=== PATIENT | female | born 1980 | race Caucasian/White ===

== ENCOUNTER 2018-12-22 12:20 | Emergency (ER) | payer BC ==
--- NOTE | 2018-12-22 13:27 | UC ---
Shoulder Pain HPI - HPI Summary HPI Summary: Right shoulder painful for about 6 months. Limited ROM and unable to sleep at night due to the pain. Hearing a lot of popping and cracking. denies any injury , ROM is limited - History of Current Complaint Chief Complaint: UCUpperExtremity Stated Complaint: RT SHOULDER COMPLAINT Time Seen by Provider: 12/22/18 13:24 Hx Obtained From: Patient Hx Last Menstrual Period: December 15 ?: No Onset/Duration: Gradual Onset, Lasting Weeks Timing: Constant Severity Initially: Severe Severity Currently: Severe Pain Intensity: 8 Aggravating Factor(s): Movement Alleviating Factor(s): Nothing - Allergies/Home Medications Allergies/Adverse Reactions: Allergies Allergy/AdvReac Type Severity Reaction Status Date / Time MS Penicillins [Penicillins] Allergy Hives Verified 08/03/13 14:39 Home Medications: Home Medications Aspirin 81 mg CHEW TAB* [Aspirin Low Dose TAB*] 81 mg PO DAILY 12/22/18 [ History Confirmed 12/22/18] Atorvastatin* [Lipitor*] 40 mg PO 2100 12/22/18 [History Confirmed 12/22/18] Citalopram TAB* [CeleXA TAB*] 40 mg PO DAILY 12/22/18 [History Confirmed ] Insulin LISPRO* [HumaLOG*] 0 units SUBCUT DIRECTED 12/22/18 [History Confirmed 12/22/18] Topiramate TAB(*) [Topamax 25 MG tab] 25 mg PO BID 12/22/18 [History Confirmed 12/22/18] buPROPion TAB* [Wellbutrin TAB*] 150 mg PO DAILY 12/22/18 [History Confirmed 10/07] hydrOXYzine HCL TAB* [Atarax TAB 50 MG *] 50 mg PO BID 12/22/18 [History Confirmed 12/22/18] PMH/Surg Hx/FS Hx/Imm Hx Previously Healthy: Yes - Surgical History Surgical History: Yes Surgery Procedure, Year, and Place: APR 2012. FULL MOUTH EXTRACTION - Family History Known Family History: Positive: Hypertension - Social History Alcohol Use: None Substance Use Type: None Smoking Status (MU): Never Smoked Tobacco Amount Used/How Often: 1 PPD X 3-4 YEARS When Did the Patient Quit Smoking/Using Tobacco: 5 YEARS AGO Review of Systems All Other Systems Reviewed And Are Negative: Yes Musculoskeletal: Positive: Arthralgia, Decreased ROM, Myalgia Physical Exam Triage Information Reviewed: Yes Appearance: Well-Appearing, Well-Nourished, Pain Distress Vital Signs: Initial Vital Signs Temp 98.6 F 12/22/18 13:12 Pulse 88 12/22/18 13:12 Resp 18 12/22/18 13:12 BP 76/56 12/22/18 13:12 Pulse Ox 98 12/22/18 13:12 Vital Signs Reviewed: Yes Eye Exam: Normal ENT Exam: Normal Dental Exam: Normal Neck exam: Normal Respiratory Exam: Normal Cardiovascular Exam: Normal Abdominal Exam: Normal Musculoskeletal: Positive: No Edema, Strength Limited @ - in overhead motions and lifting, ROM Limited @ - in ABD, EXT and EXT ROT. Psychological Exam: Normal Skin Exam: Normal Shoulder Course/Dx - Course Course Of Treatment: hx obtained, exam performed ,meds reviewed, ROM assessed. xray obtained and it was negative for any osseous injury, treated for tendonitis - Differential Dx/Diagnosis Differential Diagnosis/HQI/PQRI: Arthritis, Bursitis, Sprain, Strain Provider Diagnosis: Biceps tendonitis on right Discharge - Sign-Out/Discharge Documenting (check all that apply): Patient Departure All imaging exams completed and their final reports reviewed: Yes - Discharge Plan Condition: Stable Disposition: HOME Patient Education Materials: Tendinitis (ED) Referrals: Shasta Ceron [Primary Care Provider] - Bobby Garcia [Physical Therapist] - - Billing Disposition and Condition Condition: STABLE Disposition: Home
[2018-12-22 14:13] VITALS: BP 103/70
== END 2018-12-22 14:17 | disposition home or self-care (01) ==
LOC: UCCORT 12:20
DX: M75.21 Bicipital tendinitis, right shoulder (principal)
CPT/HCPCS: 99213; G0463